=== PATIENT | female | born 1975 | race Two or more races ===

== ENCOUNTER 2024-06-09 17:30 | Inpatient (IN) | payer OTHER ==
[~2024-06-09] VITALS: Ht 157.5 cm; Wt 78.0 kg
--- NOTE | 2024-06-09 17:37 | NUR ---
SE RECIBE PTE ALERTA Y ORIENTADA X3. REFIERE DOLOR ABDOMINAL CUADRANTE INFERIOR MADI DESDE [place] EN LA NOCHE.
[2024-06-09] MEDS ORDERED: MORPHINE SULFATE 4 MG/ML CARTRIDGE IV ONE ×2 (18:30→20:15)
--- NOTE | 2024-06-09 18:34 | NUR ---
ROXANA DIAZ EJECUTA ORDENES MEDICAS EN WOOD TOTALIDAD.
[2024-06-09 18:35] LABS: HEMATOCRIT 36.2 % (36.0-45.00); HEMOGLOBIN 11.8 g/dL (12.0-15.00); MEAN CELL VOLUME 82.5 fL (80.00-100.00); MEAN CORPUSCULAR HEMOGLOBIN 26.9 pg (27.00-32.0); MEAN CORPUSCULAR HGB CONC 32.6 g/dl (32.0-36.0); PLATELET COUNT 358 K/uL (150-450); RED BLOOD COUNT 4.39 M/uL (4.00-6.00); RED CELL DISTRIBUTION WIDTH 14.2 % (11.5-14.5)
[2024-06-09 19:15] LABS: ALBUMIN 4.1 gm/dL (3.4-5.0); BILIRUBIN TOTAL 0.28 mg/dL (0.3-1.2); CALCIUM 9.2 mg/dL (8.5-10.1); CREATININE SERUM 0.94 mg/dL (0.55-1.02); GFR 63.03; GLOBULINA 3.3 G/DL (2.4-3.5); POTASSIUM 4.06 mEq/L (3.5-5.1); TOTAL PROTEIN 7.4 gm/dL (6.4-8.2)
[2024-06-09 20:06] LABS: PH,URINE 5.5 (5.0-8.0); URINE APPEARANCE Clear; URINE BILIRRUBIN Negative (NEGATIVE); URINE BLOOD Large; URINE COLOR Yellow; URINE GLUCOSE Negative (NEGATIVE); URINE KETONE Trace (NEGATIVE); URINE LEUKOCYTE Negative; URINE NITRATE Negative; URINE PROTEIN 30 (NEGATIVE)
[2024-06-09 20:09] LABS: URINE BACTERIA 1125.9 uL (0.0-1933); URINE EPITHELIAL CELLS 35.7 uL (0.0-38.8); URINE WBC 12.3 uL (0.0-23.2)
[2024-06-09 20:10] LABS: URINE CAST 0.14 uL (0.0-1.40)
[2024-06-09] MEDS ORDERED: KETOROLAC TROMETHAMINE 60 MG VIAL IM ONE ×2 (23:30→23:39)
[2024-06-10] MEDS ORDERED: RINGERS SOLUTION,LACTATED 1,000 ML IV ONE (01:00)
[2024-06-10 01:37] LABS: HEMATOCRIT 35.5 % (36.0-45.00); HEMOGLOBIN 11.5 g/dL (12.0-15.00); MEAN CELL VOLUME 81.9 fL (80.00-100.00); MEAN CORPUSCULAR HEMOGLOBIN 26.5 pg (27.00-32.0); MEAN CORPUSCULAR HGB CONC 32.4 g/dl (32.0-36.0); PLATELET COUNT 347 K/uL (150-450); RED BLOOD COUNT 4.34 M/uL (4.00-6.00); RED CELL DISTRIBUTION WIDTH 14.7 % (11.5-14.5)
[2024-06-10] MEDS ORDERED: MORPHINE SULFATE 4 MG/ML VIAL IV STA ×2 (02:34→08:10)
[2024-06-10 08:23] VITALS: O2SAT 98
--- NOTE | 2024-06-10 08:24 | NUR ---
SE RECIBE FEMINA ALERTA Y ORIENTADA X3 EN RASHMI CON BARANDAS ELEVADAS POR SEGURIDAD. VENOPUNCION PATENTE JAYLON DE EDEMA Y ERITEMA BAJANDO IV FLUIDS POR REGULADOR. PTE PENDIENTE A CONSULT ACON DR.RODZ RAUSCH.
[2024-06-10] MEDS ORDERED: NAPROXEN 500 MG TABLET PO SCH (09:55)
[2024-06-10] MEDS ORDERED: ACETAMINOPHEN WITH CODEINE 1 UDTAB TABLET PO PRN (10:00)
[2024-06-10] MEDS ORDERED: RINGERS SOLUTION,LACTATED 1,000 ML IV SCH (10:00)
[2024-06-10 12:54] VITALS: BP 144/83
[2024-06-10 16:00] VITALS: BP 139/79
[2024-06-11 00:55] VITALS: BP 117/61
[2024-06-11 06:43] LABS: HEMATOCRIT 33.8 % (36.0-45.00); MEAN CELL VOLUME 82.9 fL (80.00-100.00); MEAN CORPUSCULAR HGB CONC 32.6 g/dl (32.0-36.0); PLATELET COUNT 327 K/uL (150-450); RED BLOOD COUNT 4.08 M/uL (4.00-6.00); RED CELL DISTRIBUTION WIDTH 14.3 % (11.5-14.5)
[2024-06-11 08:00] VITALS: BP 140/83
[2024-06-11 16:17] VITALS: BP 150/80
[2024-06-12 00:40] VITALS: BP 109/64
[2024-06-12 08:00] VITALS: BP 119/74
[2024-06-12 16:03] VITALS: BP 141/74
[2024-06-13 00:06] VITALS: BP 122/68
[2024-06-13 08:00] VITALS: BP 126/80
[2024-06-13] MEDS ORDERED: NAPR500T14 PO (10:28)
== END 2024-06-13 12:55 | disposition home or self-care (01) | DRG 761 ==
LOC: ER 17:33 → OB/GYN 06-10 10:40
PROVIDERS: Emergency Medicine; General Practice; ADMIT Obstetrics & Gynecology; ATTEND Obstetrics & Gynecology
DX: N83.202 Unspecified ovarian cyst, left side (principal); R10.2 Pelvic and perineal pain